=== PATIENT | female | born 1990 | race Caucasian/White ===

== ENCOUNTER 2020-07-15 10:19 | Emergency (ER) | payer OTHER ==
[~2020-07-15] VITALS: Ht 167.6 cm; Wt 97.5 kg
[2020-07-15 10:19] VITALS: BP_SYST 149
--- NOTE | 2020-07-15 10:19 | NUR ---
ASSISTED OUT OF CAR TO WHEELCHAIR, PLACED IN BED #7 AND TRIAGED. REPORT GIVEN TO [facility]
--- NOTE | 2020-07-15 10:22 | NUR ---
ER at bedside examining patient.
[2020-07-15] MEDS ORDERED: MORPHINE 4 MG/ML INJ. SYRINGE IVP ONE ×3 (10:30→16:00)
[2020-07-15] MEDS ORDERED: CEFAZOLIN 2 GM IVPB PREMIX 50 ML IV ONE (10:30)
--- NOTE | 2020-07-15 10:45 | NUR ---
IV ACCESS STARTED TO THE LEFT AC IN ONE ATTEMPT WITH 20G. PAIN MEDICATION GIVEN BEFORE XRAY'S BEGAN. OBVIOUS FX NOTED TO THE LEFT FOOT
[2020-07-15 11:09] LABS: BASOPHILS # (AUTO) 0.1 K/uL (0.0-0.2); BASOPHILS % (AUTO) 1.1 % (0.0-2.0); EOSINOPHILS # (AUTO) 0.1 K/uL (0.0-0.4); EOSINOPHILS % (AUTO) 0.9 % (0.0-4.0); HEMOGLOBIN 12.4 g/dL (12.0-16.0); LYMPHOCYTES # (AUTO) 2.8 K/uL (1.0-5.5); LYMPHOCYTES % (AUTO) 21.4 % (20.5-51.5); MEAN CORPUSCULAR HEMOGLOBIN 27 pg (27-31); MEAN CORPUSCULAR HGB CONC 32 % (32-36); MEAN CORPUSCULAR VOLUME 83 fL (79.0-98.0); MONOCYTES # (AUTO) 0.7 K/uL (0.0-1.0); MONOCYTES % (AUTO) 5.4 % (1.7-9.3); NEUTROPHILS # (AUTO) 9.2 K/uL (1.8-7.7); NEUTROPHILS % (AUTO) 71.2 % (40.0-70.0); PLATELET COUNT (AUTO) 355 K/uL (130-430); RED CELL DISTRIBUTION WIDTH 13.7 % (9.0-15.0); WHITE BLOOD COUNT (AUTO) 12.9 K/uL (4.8-10.8)
[2020-07-15 11:21] LABS: INR 0.9 (0.8-1.2); PROTHROMBIN TIME 9.6 SECS (9.5-12.5)
--- NOTE | 2020-07-15 11:30 | NUR ---
Spoke with Dr Hernandez requesting order for blood cultures before Cefazolin administration, Dr Hernandez requested to cancel order for blood cultures, states medication is given only prophylacticly , Dr Hernandez insist no need for blood cultures, charge nurse awared.
[2020-07-15 11:40] LABS: CALCIUM 8.6 mg/dL (8.4-11.0); CREATININE 0.75 mg/dL (0.55-1.30); POTASSIUM 3.7 mmol/L (3.5-5.1)
[2020-07-15 11:43] LABS: ALBUMIN 3.9 g/dL (3.4-4.8); TOTAL BILIRUBIN 0.6 mg/dL (0.0-1.0)
--- NOTE | 2020-07-15 11:51 | NUR ---
Dr. Ramsey, [facility] DOc, called back to speak to Dr. Hernandez regarding pt status.
--- NOTE | 2020-07-15 13:00 | NUR ---
RN AND EMT TECH SPLINTED THE LEFT FOOT AND WRAPPED WITH 2 STEFF WRAPS. PT TOLERATED WELL.
--- NOTE | 2020-07-15 15:00 | NUR ---
PT AWAITING TRANSPORT FROM [facility]. PT IS DOING WELL , NO DISTRESS.
--- NOTE | 2020-07-15 15:20 | NUR ---
SPOKE WITH [facility] AND PT IS TO GO TO [facility], DR CORREIA ACCEPTING DR. FITZPATRICK WILL COME AT [phone]
[2020-07-15 15:47] VITALS: BP_SYST 135
--- NOTE | 2020-07-15 15:47 | NUR ---
PT TRANSFERRED TO [facility] VIA AMBULANCE. PT IS STABLE . REPORT GIVEN TO [place] [facility]
[2020-07-15] MEDS ORDERED: MORPHINE 4 MG/ML INJ. SYRINGE ONE (15:57)
== END 2020-07-15 15:47 | disposition short-term general hospital (02) ==
LOC: SED 10:19
DX: S92.812A Other fracture of left foot, initial encounter for closed fracture (principal); Z20.828 Contact with and (suspected) exposure to other viral communicable diseases; W18.39XA Other fall on same level, initial encounter; Y93.89 Activity, other specified; Y92.89 Other specified places as the place of occurrence of the external cause; Y99.8 Other external cause status
CPT/HCPCS: 29515; 36415; 73590; 73610; 73630; 80053; 85025; 85610; 86886; 86900; 86901; 87426; 96365; 96375; 96376; 99285; J0690; J2270